=== PATIENT | female | born 1975 | race Caucasian/White ===

== ENCOUNTER 2020-07-11 17:27 | Emergency (ER) | payer OTHER ==
[~2020-07-11] VITALS: Ht 162.6 cm; Wt 52.2 kg
[2020-07-11] MEDS ORDERED: TRAZODONE HCL300 MG PO (17:42)
[2020-07-11] MEDS ORDERED: CITALOPRAM HBR20 MG PO (17:42)
[2020-07-11] MEDS ORDERED: REMERON15 MG PO (17:43)
[2020-07-11] MEDS ORDERED: SEROQUEL300 MG PO (17:44)
[2020-07-11] MEDS ORDERED: CLONAZEPAM0.5 MG PO (17:44)
[2020-07-11] MEDS ORDERED: BENADRYL25 MG PO (18:08)
--- OUTSIDE RECORDS SUMMARY | 2020-07-12 12:26 | XMS ---
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 - Provide education regarding the appropriate use of emergency services. - Encourage f/u with primary care provider. - Provide community resources regarding locating a primary care provider if patient does not have an identified PCP. - Encourage review of the patient\T\rsquo;s [place] Prescription Monitoring Program profile. These are guidelines and the provider should exercise clinical judgment when providing care. Please refer to ED CM as needed for further follow up. Additional care guidelines exist for the following facilities: [facility] ( 12/07/2017 ) [facility] ( 02/05/2015 ) M[place] VISIT COUNT ([address] [facility] ArianneArianne 1 [facility] [address] [place] [address] JULIO C Mahajan TOTAL 12 NOTE: Visits indicate total known visits. ED/UCC VISIT TRACKING (12 MO.) 07/11/2020 17:28 JULIO C [facility] [place] TYPE: Emergency COMPLAINT: - MEDICAL CLEARANCE [facility] DIAGNOSES: - Anxiety disorder, unspecified - Other chest pain [facility] DIAGNOSES: - Displaced fracture of navicular [scaphoid] of unspecified foot, initial encounter for closed fracture - Unspecified fracture of unspecified talus, initial encounter for closed fracture - Other psychoactive substance abuse, uncomplicated - Major depressive disorder, single episode, unspecified 01/27/2020 01:51 [facility] TYPE: Emergency DIAGNOSES: - sucidal - Pain in right ankle and joints of right foot 01/18/2020 07:49 [facility] RODRIGUEZ TYPE: Emergency DIAGNOSES: - PD Invol-Behavioral Health - PD INVOL - Other stimulant abuse, uncomplicated 01/02/2020 12:34 [facility] RODRIGUEZ TYPE: Emergency DIAGNOSES: - AMS - Unspecified psychosis not due to a substance or known physiological condition - PD Invol-Behavioral Health 09/25/2019 03:37 [facility] TYPE: Emergency DIAGNOSES: - Altered mental status, unspecified - overdose - Drug Overdose - Poisoning by other antihypertensive drugs, undetermined, initial encounter 09/21/2019 15:21 [facility] TYPE: Emergency DIAGNOSES: - cough - Chronic sinusitis, unspecified - Sinus Problem 08/26/2019 13:11 [facility] TYPE: Emergency DIAGNOSES: - Acute recurrent sinusitis, unspecified - Facial Pain - SINUS CONGESTION 07/21/2019 22:26 [facility] TYPE: Emergency DIAGNOSES: - Leg Swelling - Strain of unspecified muscle and tendon at ankle and foot level, left foot, sequela - Leg Pain - Ankle Pain - L ankle swelling - Strain of unspecified muscle(s) and tendon(s) at lower leg level, left leg, initial encounter 07/14/2019 16:31 [facility] TYPE: Emergency DIAGNOSES: - Pain in left knee - Effusion, left knee - BACK PAIN - Other muscle spasm - Low back pain INPATIENT VISIT TRACKING (12 MO.) No inpatient visits to display in this time frame [email or web address]
--- NOTE | 2020-07-13 08:53 | PATH ---
[facility] [address], [place] [address] Signed ORDERING PHYSICIAN: Ziggy Palacios MD PATIENT NAME: MELONY PHIPPS GENDER: F : 1975 Prior History: No cases found. SPECIMEN(S): No Source Given MOLECULAR PATHOLOGY RESULTS: SARS-CoV-2 Not Detected ADDITIONAL NOTES.: The [employer] SARS-CoV-2 Assay is a multiplex real-time PCR (RT-PCR) in vitro diagnostic test intended for the qualitative detection of RNA from SARS-CoV-2 from individuals who meet COVID-19 clinical and/or epidemiological criteria. In general, SARS-CoV-2 RNA can be detected during the acute phase of infection. Positive results indicate the presence of SARS-CoV-2 RNA. Clinical correlation with patient history and other diagnostic information is necessary to determine patient infection status. Positive results do not rule out bacterial infection or co-infection with other viruses. Negative results do not preclude SARS-CoV-2 infection and should not be used as the sole basis for patient management decisions. Negative results must be combined with other clinical observations, patient history, and epidemiological information. The [employer] SARS-CoV-2 Assay is not yet approved or cleared by the [place] FDA. When there are no FDA-approved or cleared tests available, and other criteria are met, FDA can make tests available under an emergency access mechanism called an Emergency Use Authorization (EUA). The EUA for this test is supported by the [place] of Health and Human Service's (HHS's) declaration that circumstances exist to justify the emergency use of in vitro diagnostics for the detection and/or diagnosis of the virus that causes COVID-19. This EUA will remain in effect for the duration of the COVID-19 declaration justifying emergency of IVDs, unless it is terminated or revoked by FDA, after which the test may no longer be used. The [employer] SARS-CoV-2 Assay is for use only under EUA PATIENT NAME: MOISEMELONY PATHOLOGY DATE OF : 73 REPORT #: [id number] PHYSICIAN: APRIL PATHOLOGY PCP: NO PRIMARY CARE PHYSICIAN REPORT IS CONFIDENTIAL AND NOT TO BE RELEASED WITHOUT AUTHORIZATION [facility] [address] [place] [address] [place], [place] [address] Signed in [place] laboratories certified under the Clinical Laboratory Improvement Amendments of 1988 (CLIA) to perform high complexity tests. [facility] is certified under CLIA to perform high complexity clinical laboratory testing. PERFORMING LABORATORY.: Molecular testing was performed by [facility] [place] [address] (Radio News Anchor: Axel Thayer D.O.; CLIA#: [id number]) Diagnostician: System Interface Pathologist Electronically Signed 07/13/2020 Copies: ~ PATIENT NAME: MELONY PHIPPS PATHOLOGY DATE OF : 73 REPORT #: [id number] PHYSICIAN: APRIL CELIS PCP: NO PRIMARY CARE PHYSICIAN REPORT IS CONFIDENTIAL AND NOT TO BE RELEASED WITHOUT AUTHORIZATION
== END 2020-07-12 12:10 ==
LOC: ED 17:27 → EDBD 17:28 → ED 17:28
DX: R45.851 Suicidal ideations (principal); Z20.828 Contact with and (suspected) exposure to other viral communicable diseases; Z87.891 Personal history of nicotine dependence; Z88.8 Allergy status to other drugs, medicaments and biological substances; Z79.899 Other long term (current) drug therapy
CPT/HCPCS: 80053; 80176; 81001; 84443; 84703; 85025; 99285; C9803; G0480